=== PATIENT | female | born 1950 | race Two or more races ===

== ENCOUNTER 2022-05-08 07:32 | Outpatient (CLI) | payer OTHER | END 2022-05-08 07:38 | disposition home or self-care (01) | LOC: RX STUDY 07:32 | PROVIDERS: ATTEND Surgery | DX: K63.1 Perforation of intestine (nontraumatic) (principal); Z86.010 Personal history of colon polyps; Z93.3 Colostomy status ==

== ENCOUNTER 2024-04-30 07:51 | Day surgery (SDC) | payer OTHER ==
[2024-04-30] MEDS ORDERED: fentaNYL CITRATE 50 MCG/ML AMPUL IV ONE (11:00)
[2024-04-30] MEDS ORDERED: MIDAZOLAM HCL 2 MG/2 ML VIAL IV ONE (11:00)
[2024-04-30] MEDS ORDERED: DIPHENHYDRAMINE HCL 50 MG/ML VIAL 1ML IV ONE (11:00)
== END 2024-04-30 13:00 | disposition home or self-care (01) ==
LOC: AMB-ENDOS 07:51
PROVIDERS: ATTEND Surgery
DX: K57.30 Diverticulosis of large intestine without perforation or abscess without bleeding (principal); K63.1 Perforation of intestine (nontraumatic); Z86.0100 Personal history of colon polyps, unspecified; K64.8 Other hemorrhoids; Z93.3 Colostomy status; Z88.6 Allergy status to analgesic agent